=== PATIENT | female | born 1935 | race Caucasian/White ===

== ENCOUNTER 2016-08-09 05:48 | Observation (INO) | payer MEDICARE, OTHER ==
[2016-08-09] MEDS ORDERED: PANTOPRAZOLE 40 MG/10 ML VIAL IVP STA (06:07)
[2016-08-09] MEDS ORDERED: SODIUM CHLORIDE 0.9% 1,000 ML IV STA (06:07)
--- NOTE | 2016-08-09 06:10 | ED ---
General Adult HPI - General Chief complaint: GI Bleed Stated complaint: vomiting Time Seen by Provider: 08/09/16 06:03 Source: patient, family, EMS, RN notes reviewed Mode of arrival: EMS Limitations: altered mental status - History of Present Illness Initial comments: Patient is a pleasant 80-year-old female presenting to the emergency department with an episode of coffee-ground emesis. Episode occurred just prior to arrival. Patient reportedly also had a couple loose stools. Patient did have similar symptoms previously and was found to have hiatal hernia with scope. Patient denies abdominal pain. No nausea at this time. No weakness or fatigue. No dyspnea. - Related Data Home Medications Medication Instructions Recorded Confirmed Acetaminophen [Tylenol] 650 mg PO Q4H PRN 08/09/16 08/09/16 Bisacodyl [Dulcolax] 10 mg RECTAL DAILY PRN 08/09/16 08/09/16 Hydrochlorothiazide 25 mg PO DAILY 08/09/16 08/09/16 [Hydrochlorothiazide] Insulin Aspart [NovoLOG] 2 units SQ TID-W/MEALS 08/09/16 08/09/16 Insulin Glargine [Lantus] 6 units SQ HS 08/09/16 08/09/16 Ipratropium-Albuterol Nebulize 3 ml INHALATION Q6HR PRN 08/09/16 08/09/16 [Duoneb 0.5 mg-3 mg/3 ml Soln] Lansoprazole [Prevacid] 30 mg PO DIRECTED 08/09/16 08/09/16 Magnesium Hydroxide [Milk of 400 mg PO DAILY PRN 08/09/16 08/09/16 Magnesia] Multivitamins, Thera [Multivitamin] 1 tab PO HS 08/09/16 08/09/16 Potassium Chloride ER [K-Dur 10] 10 meq PO DAILY 08/09/16 08/09/16 Sertraline HCl [Sertraline HCl] 25 mg PO DAILY 08/09/16 08/09/16 Simvastatin [Simvastatin] 20 mg PO HS 08/09/16 08/09/16 Allergies Allergy/AdvReac Type Severity Reaction Status Date / Time Sulfa (Sulfonamide Allergy Rash/Hives Verified 08/09/16 05:57 Antibiotics) sulfamethoxazole Allergy Rash/Hives Verified 08/09/16 05:57 [From Bactrim] trimethoprim [From Bactrim] Allergy Rash/Hives Verified 08/09/16 05:57 Review of Systems ROS Statement: Those systems with pertinent positive or pertinent negative responses have been documented in the HPI. ROS Other: All systems not noted in ROS Statement are negative. Constitutional: Denies: fever Eyes: Denies: eye pain ENT: Denies: ear pain Respiratory: Denies: cough, dyspnea Cardiovascular: Denies: chest pain Endocrine: Denies: fatigue Gastrointestinal: Reports: other (One episode of coffee-ground emesis). Denies : abdominal pain Genitourinary: Denies: dysuria Musculoskeletal: Denies: back pain Skin: Denies: rash Neurological: Denies: weakness General Exam Limitations: altered mental status General appearance: alert, in no apparent distress Head exam: Present: atraumatic Eye exam: Present: normal appearance, PERRL ENT exam: Present: normal oropharynx Neck exam: Present: normal inspection Respiratory exam: Present: normal lung sounds bilaterally Cardiovascular Exam: Present: regular rate, normal rhythm GI/Abdominal exam: Present: soft. Absent: distended, tenderness, guarding, rebound, rigid Extremities exam: Present: normal inspection. Absent: pedal edema, calf tenderness Neurological exam: Present: alert Psychiatric exam: Present: normal affect, normal mood Skin exam: Absent: rash Course Vital Signs 08/09/16 05:49 Temperature 98.0 F Pulse Rate 87 Respiratory 18 Rate Blood Pressure 157/67 O2 Sat by Pulse 96 Oximetry EKG Findings - EKG Comments: EKG Findings:: Normal sinus rhythm at 86. SC 170. QRS 72. QT 386. QTc 461. Left axis. Normal QRS. Normal ST-T. Medical Decision Making - Medical Decision Making Patient reexamined. Patient and family updated. Case discussed with Dr. Jane , who will admit for Dr. Yen. - Lab Data Result diagrams: 08/09/16 06:05 08/09/16 06:05 Lab Results 08/09/16 08/09/16 08/09/16 Range/Units 06:05 06:05 06:05 WBC 9.7 (3.8-10.6) k/uL RBC 5.07 (3.80-5.40) m/uL Hgb 14.2 (11.4-16.0) gm/dL Hct 45.2 (34.0-46.0) % MCV 89.2 (80.0-100.0) fL MCH 28.1 (25.0-35.0) pg MCHC 31.5 (31.0-37.0) g/dL RDW 14.1 (11.5-15.5) % Plt Count 286 (150-450) k/uL Neutrophils % 67 % Lymphocytes % 25 % Monocytes % 5 % Eosinophils % 1 % Basophils % 0 % Neutrophils # 6.5 (1.3-7.7) k/uL Lymphocytes # 2.4 (1.0-4.8) k/uL Monocytes # 0.5 (0-1.0) k/uL Eosinophils # 0.1 (0-0.7) k/uL Basophils # 0.0 (0-0.2) k/uL PT 10.7 (9.0-12.0) sec INR 1.1 (<1.1) APTT 28.2 (22.0-30.0) sec Sodium 144 (137-145) mmol/L Potassium 3.7 (3.5-5.1) mmol/L Chloride 104 (98-107) mmol/L Carbon Dioxide 30 (22-30) mmol/L Anion Gap 10 mmol/L BUN 14 (7-17) mg/dL Creatinine 0.50 L (0.52-1.04) mg/dL Est GFR (MDRD) Af Amer >60 (>60 ml/min/1.73 sqM) Est GFR (MDRD) Non-Af >60 (>60 ml/min/1.73 sqM) Glucose 147 H (74-99) mg/dL Calcium 9.5 (8.4-10.2) mg/dL Total Bilirubin 0.5 (0.2-1.3) mg/dL AST 21 (14-36) U/L ALT 31 (9-52) U/L Alkaline Phosphatase 109 (38-126) U/L Total Protein 7.0 (6.3-8.2) g/dL Albumin 3.9 (3.5-5.0) g/dL Disposition Clinical Impression: Upper GI hemorrhage Disposition: ADMITTED IP TO THIS HOSP
[2016-08-09 06:18] LABS: Basophils % (A) 0 %; CH 28.5; CHCM 32.1; Eosinophils # (A) 0.1 k/uL (0-0.7); Eosinophils % (A) 1 %; HCT 45.2 % (34.0-46.0); HDW 2.47; HGB 14.2 gm/dL (11.4-16.0); Luc # (Auto) 0.18; Luc % (Auto) 2; Lymphocytes # (A) 2.4 k/uL (1.0-4.8); Lymphocytes % (A) 25 %; MCH 28.1 pg (25.0-35.0); MCHC 31.5 g/dL (31.0-37.0); MCV 89.2 fL (80.0-100.0); Mean Platelet Volume 7.2; Monocytes # (A) 0.5 k/uL (0-1.0); Monocytes % (A) 5 %; Neutrophils # (A) 6.5 k/uL (1.3-7.7); Neutrophils % (A) 67 %; RBC 5.07 m/uL (3.80-5.40); RDW 14.1 % (11.5-15.5); WBC 9.7 k/uL (3.8-10.6); WBC (Perox) 10.03
[2016-08-09 06:30] LABS: ALT 31 U/L (9-52); AST 21 U/L (14-36); Alkaline Phosphatase 109 U/L (38-126); Anion Gap 10 mmol/L; Blood Urea Nitrogen 14 mg/dL (7-17); Calcium 9.5 mg/dL (8.4-10.2); Carbon Dioxide 30 mmol/L (22-30); Chloride 104 mmol/L (98-107); Glucose 147 mg/dL (74-99); INR 1.1 (<1.1); Non-African American GFR(MDRD) >60 (>60 ml/min/1.73 sqM); Partial Thromboplastin Time 28.2 sec (22.0-30.0); Potassium 3.7 mmol/L (3.5-5.1); Prothrombin Time 10.7 sec (9.0-12.0); Sodium 144 mmol/L (137-145); Total Bilirubin 0.5 mg/dL (0.2-1.3)
[2016-08-09 06:46] LABS: Creatine Kinase 37 U/L (30-135)
[2016-08-09 06:58] LABS: Creatine Kinase MB 0.4 ng/mL (0.0-2.4); Troponin I <0.012 ng/mL (0.000-0.034)
[2016-08-09] MEDS ORDERED: NALOXONE 0.4 MG/ML 1 ML VIAL IV PRN (06:59)
[2016-08-09] MEDS: PANTOPRAZOLE 40 MG/10 ML VIAL IV SCH (08:17)
[2016-08-09] MEDS: SODIUM CHLORIDE 0.9% 1,000 ML IV SCH ×2 (08:18→15:59)
[2016-08-09] MEDS ORDERED: ACETAMINOPHEN TAB 325 MG TAB PO PRN (09:27)
[2016-08-09] MEDS ORDERED: MAGNESIUM HYDROXIDE 2,400 MG/10 ML CUP PO PRN (09:27)
[2016-08-09] MEDS ORDERED: BISACODYL 10 MG SUPP RECTAL PRN (09:27)
[2016-08-09] MEDS ORDERED: IPRATROPIUM-ALBUTEROL 3 ML NEB INHALATION PRN (09:27)
--- NOTE | 2016-08-09 09:27 | P.HPIM ---
History of Present Illness H&P Date: 08/09/16 Chief Complaint: Coffee-ground emesis A 80-year-old female was transferred from [facility] per the EMS system after care providers activated the system when patient had developed an onset of coffee-ground emesis prior to arrival patient stated that she had been coughing frequently prior to the incident. Additionally patient reports having several loose stools patient is a poor past medical record administrator.. Patient son is at the bedside health history has been obtained from interviewing the son and the patient and the nursing staff. Patient is a resident at the [facility] facility is wheelchair bedbound. According to the son at the bedside the patient had a upper scope done several years ago for similar symptoms and at that time the scope found a hiatal hernia. According to the son the patient does have a frequent nonproductive cough which is chronic the patient is denying any abdominal pain. Patient is denying any painful bowel movements. No chest pain no dizziness or lightheadedness no shortness of breath. Hemoglobin on arrival was 14.2. Temp 98. Since admission there is been no further episodes. Did note the patient this morning is incontinent of urine and stool small amount brownish in color. Patient reports no nausea sensation there is been no further emesis Review of Systems Essentially unremarkable except as mentioned in the present illness Past Medical History Past Medical History: Diabetes Mellitus, GI Bleed, Hyperlipidemia, Hypertension , Osteoarthritis (OA), Vascular Disorder Additional Past Medical History / Comment(s): pemphigoid History of Any Multi-Drug Resistant Organisms: None Reported Past Surgical History: Tonsillectomy Additional Past Surgical History / Comment(s): EGD, colonoscopy Past Psychological History: Depression Smoking Status: Former smoker Past Alcohol Use History: None Reported Past Drug Use History: None Reported Medications and Allergies Home Medications Medication Instructions Recorded Confirmed Type Acetaminophen [Tylenol] 650 mg PO Q4H PRN 08/09/16 08/09/16 History Bisacodyl [Dulcolax] 10 mg RECTAL DAILY PRN 08/09/16 08/09/16 History Hydrochlorothiazide 25 mg PO DAILY 08/09/16 08/09/16 History [Hydrochlorothiazide] Insulin Aspart [NovoLOG] 2 units SQ TID-W/MEALS 08/09/16 08/09/16 History Insulin Glargine [Lantus] 6 units SQ HS 08/09/16 08/09/16 History Ipratropium-Albuterol Nebulize 3 ml INHALATION Q6HR PRN 08/09/16 08/09/16 History [Duoneb 0.5 mg-3 mg/3 ml Soln] Lansoprazole [Prevacid] 30 mg PO DIRECTED 08/09/16 08/09/16 History Magnesium Hydroxide [Milk of 400 mg PO DAILY PRN 08/09/16 08/09/16 History Magnesia] Multivitamins, Thera [Multivitamin] 1 tab PO HS 08/09/16 08/09/16 History Potassium Chloride ER [K-Dur 10] 10 meq PO DAILY 08/09/16 08/09/16 History Sertraline HCl [Sertraline HCl] 25 mg PO DAILY 08/09/16 08/09/16 History Simvastatin [Simvastatin] 20 mg PO HS 08/09/16 08/09/16 History Allergies Allergy/AdvReac Type Severity Reaction Status Date / Time Sulfa (Sulfonamide Allergy Rash/Hives Verified 08/09/16 05:57 Antibiotics) sulfamethoxazole Allergy Rash/Hives Verified 08/09/16 05:57 [From Bactrim] trimethoprim [From Bactrim] Allergy Rash/Hives Verified 08/09/16 05:57 Physical Exam Vitals: Vital Signs Temp Pulse Resp BP Pulse Ox 08/09/16 07:30 97.4 F L 83 16 128/66 99 08/09/16 07:06 97.8 F 83 18 124/58 97 GENERAL APPEARANCE: 80-year-old female patient is alert, oriented to person place event pleasant cooperative, in no acute distress. VITAL SIGNS: Reviewed HEENT: Head is normocephalic and atraumatic. Pupils are equal and reactive. The nares are patent. Oropharynx is clear without lesions. NECK: Supple without lymphadenopathy. Traches midline. HEART: S1, S2. Regular rate and rhythm. Able to appreciate a murmur denying chest pain LUNGS: No crackles or wheezes are heard. Posterior diminished at the bases otherwise adequate air movement no wheezing noted ABDOMEN: Soft, nontender, nondistended with good bowel sounds. No peritoneal signs. No palpable organomegaly or masses. Incontinent a urine with a a small amount as brownish stool EXTREMITIES: Normal skin color and turgor. No cyanosis, rash, ulceration, clubbing or edema. Radial pedal pulses are 2/4 bilaterally. NEUROLOGICAL: No focal deficits. Strength and sensation are grossly intact. 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 [facility] GI service start patient on a clear liquid diet today and advance as tolerated monitor hemoglobin if there are no further episodes patient may be transferred back to the ECF facility within 24- 48 hrs Monitor blood sugars while NPO address as indicated Resume home meds as appropriate We'll continue to monitor further recommendations pending Son at bedside updated on plan of care DVT and GI prophylaxis We'll repeat labs in the morning and monitor response The above dictated assessment and findings were discussed with dr dolly Lopez and the plan of care have been dictated as directed. Katlin Sinha nurse practitioner acting as a scribe for dr alberto
[2016-08-09] MEDS ORDERED: ONDANSETRON 4 MG/2 ML VIAL IVP PRN (09:29)
--- NOTE | 2016-08-09 10:42 | CONS ---
DATE OF CONSULTATION: 08/09/2016 REASON FOR CONSULTATION: Acute upper GI bleed. HISTORY OF PRESENT ILLNESS: The patient is a 80-year-old pleasant lady who is a resident of [facility] was brought to the emergency room at 3:00 in the morning when she had one episode of coffee-ground emesis. The patient says that she was coughing through the night several times and around 3:00 she felt nauseated and she had a coughing spell and around that time she had small amount of coffee-ground emesis. The nursing staff at [facility] became concerned and she sent her to the emergency room and subsequently admitted to the hospital. Since being here, she did not have any further episodes of GI bleed. In fact, the patient has long-standing history of gastroesophageal reflux symptoms and has been on Prevacid 30 mg daily on an outpatient basis and doing well. In fact, her last upper endoscopy was about 4 years ago and according to the family, it was performed by me which revealed a hiatal hernia and esophagitis. The patient denies any abdominal pain. Reports no rectal bleeding or melena. She had no fever, chills, night sweats. Past medical history is significant for hypertension, hypercholesterolemia, gastroesophageal reflux disease, diabetes mellitus, coronary artery disease. Medications at home include simvastatin, sertraline, multivitamin, magnesium oxide, Prevacid, DuoNeb, Lantus, NovoLog, hydrochlorothiazide, Dulcolax and Tylenol. ALLERGIES: SULFA. SOCIAL HISTORY: History of no smoking, no alcohol use. FAMILY HISTORY: Father of coronary artery disease. REVIEW OF SYSTEMS: CARDIOPULMONARY: No chest pain or shortness of breath. GENITOURINARY: No dysuria or hematuria. MUSCULOSKELETAL: Unremarkable. SKIN: Unremarkable. ENDOCRINE: Unremarkable. PSYCHIATRIC: Unremarkable. NEUROLOGY: Unremarkable. ENT/VISION: Unremarkable. MUSCULOSKELETAL: Unremarkable. CONSTITUTIONAL: No recent weight loss. No fever, chills, night sweats. ENDOCRINOLOGY: Unremarkable. HEMATOLOGY: Unremarkable. On physical examination, she appears comfortable in no apparent distress. Vitals signs are stable. Blood pressure is 157/67, pulse rate 87, temperature 98. HEENT: Unremarkable. Conjunctivae pink. Sclerae anicteric. Oral cavity, no lesions. NECK: No JVD or lymph node enlargement. CHEST: Clear to auscultation. HEART: Regular rate and rhythm. ABDOMEN: Soft. Bowel sounds are positive. No organomegaly. EXTREMITIES: No pedal edema. SKIN: No rashes. NEURO: Alert and oriented x3. No focal deficits. Labs done at the time of admission to the hospital include hemoglobin 14.2, WBC 9.7, platelets are normal. Basic metabolic panel is normal. BUN 14, creatinine 0.5. IMPRESSION: Acute upper gastrointestinal bleed with one episode of coffee-ground emesis at 3:00 this morning. The patient has long-standing history of gastroesophageal reflux symptoms and has been on Prevacid 30 mg daily at the longterm and was doing well. Probably she had an episode of severe cough resulting in some nausea, vomiting and coffee-ground emesis, but patient is hemodynamically stable and did not have any evidence of active bleeding since being in the hospital. She is presently asymptomatic. RECOMMENDATIONS: 1. Start her on clear liquid diet. 2. Continue Protonix 40 mg q.12 hours. 3. Repeat CBC in the morning. 4. If she does not have any further episodes of bleeding, she can be discharged home tomorrow. 5. No indication for any endoscopic intervention at the present time. The plan was discussed with the patient as well as her family who is at the bedside. Thank you for this consultation.
[2016-08-09 11:49] LABS: Glucose,Whole Blood 153 mg/dL (75-99)
[2016-08-09] MEDS: INSULIN LISPRO (humaLOG) 300 UNIT/3 ML VIAL SQ SCH ×2 (12:46→18:21)
--- NOTE | 2016-08-09 13:04 | P.PN ---
Progress Note - Text Patient seen and examined by me H&P dictated by Katlin MONTIEL nurse practionner working with me today.
[2016-08-09 14:27] LABS: Basophils % (A) 0 %; CH 28.4; CHCM 31.6; Eosinophils # (A) 0.2 k/uL (0-0.7); Eosinophils % (A) 2 %; HCT 40.1 % (34.0-46.0); HGB 12.7 gm/dL (11.4-16.0); Luc # (Auto) 0.17; Luc % (Auto) 2; Lymphocytes # (A) 2.4 k/uL (1.0-4.8); Lymphocytes % (A) 30 %; MCH 28.6 pg (25.0-35.0); MCHC 31.7 g/dL (31.0-37.0); MCV 90.2 fL (80.0-100.0); Mean Platelet Volume 7.1; Monocytes # (A) 0.4 k/uL (0-1.0); Monocytes % (A) 5 %; Neutrophils # (A) 4.9 k/uL (1.3-7.7); Neutrophils % (A) 60 %; RBC 4.45 m/uL (3.80-5.40); RDW 14.1 % (11.5-15.5); WBC 8.1 k/uL (3.8-10.6); WBC (Perox) 8.51
[2016-08-09 14:36] VITALS: BMI 26.5
[2016-08-09 17:12] LABS: Glucose,Whole Blood 102 mg/dL (75-99)
[2016-08-09 21:13] LABS: Glucose,Whole Blood 133 mg/dL (75-99)
[2016-08-09] MEDS: ATORVASTATIN 10 MG TAB PO SCH (21:53)
[2016-08-09] MEDS: INSULIN GLARGINE 100 UNIT/ML 10 ML VIAL SQ SCH (21:53)
[2016-08-09] MEDS: MULTIVITAMINS, THERA 1 EACH TAB PO SCH (21:53)
[2016-08-10] MEDS: SODIUM CHLORIDE 0.9% 1,000 ML IV SCH (02:00)
[2016-08-10 07:35] LABS: Glucose,Whole Blood 101 mg/dL (75-99)
[2016-08-10] MEDS: INSULIN LISPRO (humaLOG) 300 UNIT/3 ML VIAL SQ SCH ×3 (07:57→17:21)
[2016-08-10 08:00] LABS: Basophils % (A) 1 %; CH 28.6; CHCM 31.7; Eosinophils # (A) 0.2 k/uL (0-0.7); Eosinophils % (A) 3 %; HDW 2.48; HGB 12.4 gm/dL (11.4-16.0); Luc # (Auto) 0.06; Luc % (Auto) 1; Lymphocytes # (A) 1.8 k/uL (1.0-4.8); Lymphocytes % (A) 30 %; MCHC 30.9 g/dL (31.0-37.0); MCV 90.6 fL (80.0-100.0); Mean Platelet Volume 8.3; Monocytes # (A) 0.4 k/uL (0-1.0); Monocytes % (A) 6 %; Neutrophils # (A) 3.5 k/uL (1.3-7.7); Neutrophils % (A) 60 %; RBC 4.42 m/uL (3.80-5.40); RDW 14.3 % (11.5-15.5)
[2016-08-10 08:24] LABS: ALT 31 U/L (9-52); AST 17 U/L (14-36); Alkaline Phosphatase 85 U/L (38-126); Anion Gap 8 mmol/L; Blood Urea Nitrogen 8 mg/dL (7-17); Calcium 8.5 mg/dL (8.4-10.2); Carbon Dioxide 29 mmol/L (22-30); Chloride 108 mmol/L (98-107); Glucose 117 mg/dL (74-99); Non-African American GFR(MDRD) >60 (>60 ml/min/1.73 sqM); Potassium 3.8 mmol/L (3.5-5.1); Sodium 145 mmol/L (137-145); Total Bilirubin 0.5 mg/dL (0.2-1.3); Total Protein 6.2 g/dL (6.3-8.2)
[2016-08-10] MEDS: HYDROCHLOROTHIAZIDE 25 MG TAB PO SCH (08:40)
[2016-08-10] MEDS: SERTRALINE 25 MG TAB PO SCH (08:40)
[2016-08-10] MEDS: POTASSIUM CHLORIDE ER 10 MEQ TAB.ER.PRT PO SCH (08:40)
[2016-08-10] MEDS: PANTOPRAZOLE 40 MG/10 ML VIAL IV SCH (08:41)
--- NOTE | 2016-08-10 10:52 | P.PN ---
Subjective 80-year-old female sitting up in bed pleasant cooperative oriented 3 daughter at bedside updated on the plan of care currently tolerating diet. This been no further episodes of hematemesis. The discharge plan is in progress if patient remains stable will be transferred back to [facility] in the morning daughter aware of the plan. Patient was seen by GI services recommendations reviewed noted and appreciated. Patient does have a long-standing history of gastroesophageal reflux symptoms. Has been maintained on Prevacid 30 mg daily. Patient's last endoscopic was approximate 4 years ago. Patient's family stated that it did show a hiatal hernia esophagitis. This been no abdominal pain. Objective - Vital Signs Vital signs: Vital Signs Temp 96.2 F L 08/10/16 07:00 Pulse 73 08/10/16 07:00 Resp 16 08/10/16 07:00 BP 106/70 08/10/16 07:00 Pulse Ox 96 08/10/16 07:00 Intake & Output 08/09/16 08/10/16 08/10/16 18:59 06:59 18:59 Intake Total 450 Balance 450 Weight 68.039 kg Intake: Oral 450 Other: Voiding Method Diaper # Voids 2 1 # Bowel Movements 1 - Exam Physical exam 80-year-old female sitting up in bed does not appear in any acute distress pleasant cooperative oriented times Lungs essentially clear adequate air movement Heart S1-S2 audible and regular Abdomen soft nontender tolerating diet no reports of nausea vomiting Extremities no edema - Labs CBC & Chem 7: 08/10/16 07:48 08/10/16 07:48 Labs: Abnormal Lab Results - Last 24 Hours (Table) 08/09/16 08/09/16 08/09/16 Range/Units 11:46 16:58 21:02 MCHC (31.0-37.0) g/dL Chloride (98-107) mmol/L Glucose (74-99) mg/dL POC Glucose (mg/dL) 153 H 102 H 133 H (75-99) mg/dL Total Protein (6.3-8.2) g/dL Albumin (3.5-5.0) g/dL 08/10/16 08/10/16 08/10/16 Range/Units 07:32 07:48 07:48 MCHC 30.9 L (31.0-37.0) g/dL Chloride 108 H (98-107) mmol/L Glucose 117 H (74-99) mg/dL POC Glucose (mg/dL) 101 H (75-99) mg/dL Total Protein 6.2 L (6.3-8.2) g/dL Albumin 3.2 L (3.5-5.0) g/dL Assessment and Plan Plan: Impression Present on admission coffee-ground emesis sudden onset suspect gastritis with esophagitis Limited mobility wheelchair bedbound Type 2 diabetes insulin requiring History of a hiatal hernia Hypertension essential benign Dyslipidemia Physical debility chronic suspect due to chronic illness History of chronic esophageal reflux disease Plan patient may be [facility] tomorrow Resume home meds as appropriate We'll continue to monitor further recommendations pending DVT and GI prophylaxis The above dictated assessment and findings were discussed with dr dolly Lopez and the plan of care have been dictated as directed. Katlin Sinha nurse practitioner acting as a scribe for dr alberto
--- NOTE | 2016-08-10 12:24 | PN ---
DATE OF SERVICE: 08/10/2016 Patient is a 80-year-old pleasant lady admitted to the hospital with one episode of coffee-ground emesis and since being in the hospital, she did not have any further episodes. She denies any abdominal pain, on a regular diet, tolerating well. No new complaints. On physical examination, blood pressure 134/70, pulse is 81, temperature 97.8. HEENT: Unremarkable. Conjunctivae pink. Sclerae nonicteric. Oral cavity no lesions. NECK: No JVD or lymph node enlargement. Chest was clear to auscultation. HEART: Regular rate and rhythm. Abdomen is soft. Bowel sounds are positive. No organomegaly. EXTREMITIES: No pedal edema. SKIN: No rashes. NEURO: She is alert and oriented x3. No focal deficits. Labs from today, hemoglobin 12.4, WBC 6, platelets of 245. IMPRESSION: Acute upper gastrointestinal bleed, probably related to gastroesophageal reflux disease/hiatal hernia. She had an EGD done a year ago according to her son, which showed esophagitis. Presently on Protonix IV 40 mg q.12, doing well. No further episodes of bleeding and hemoglobin stable at 12.9. RECOMMENDATIONS: 1. Advance diet as tolerated. 2. She can be discharged home today with an outpatient followup in 2 weeks.
[2016-08-10 12:34] LABS: Glucose,Whole Blood 121 mg/dL (75-99)
[2016-08-10 17:00] LABS: Glucose,Whole Blood 115 mg/dL (75-99)
[2016-08-10] MEDS: MULTIVITAMINS, THERA 1 EACH TAB PO SCH (20:17)
[2016-08-10] MEDS: ATORVASTATIN 10 MG TAB PO SCH (20:17)
[2016-08-10 21:38] LABS: Glucose,Whole Blood 128 mg/dL (75-99)
[2016-08-10] MEDS: INSULIN GLARGINE 100 UNIT/ML 10 ML VIAL SQ SCH (21:53)
[2016-08-11 01:34] VITALS: RESP 16
[2016-08-11 07:07] LABS: Glucose,Whole Blood 131 mg/dL (75-99)
[2016-08-11] MEDS: INSULIN LISPRO (humaLOG) 300 UNIT/3 ML VIAL SQ SCH ×2 (08:14→12:59)
[2016-08-11] MEDS: SERTRALINE 25 MG TAB PO SCH (08:15)
[2016-08-11] MEDS: HYDROCHLOROTHIAZIDE 25 MG TAB PO SCH (08:15)
[2016-08-11] MEDS: POTASSIUM CHLORIDE ER 10 MEQ TAB.ER.PRT PO SCH (08:15)
[2016-08-11] MEDS: PANTOPRAZOLE 40 MG/10 ML VIAL IV SCH (08:15)
[2016-08-11 09:36] LABS: Basophils % (A) 1 %; CH 28.8; CHCM 32.1; Eosinophils # (A) 0.2 k/uL (0-0.7); Eosinophils % (A) 3 %; HCT 42.1 % (34.0-46.0); HDW 2.51; HGB 13.1 gm/dL (11.4-16.0); Luc # (Auto) 0.13; Luc % (Auto) 2; Lymphocytes % (A) 32 %; MCH 28.2 pg (25.0-35.0); MCHC 31.2 g/dL (31.0-37.0); MCV 90.4 fL (80.0-100.0); Mean Platelet Volume 8.1; Monocytes # (A) 0.4 k/uL (0-1.0); Monocytes % (A) 6 %; Neutrophils # (A) 3.5 k/uL (1.3-7.7); Neutrophils % (A) 57 %; RBC 4.66 m/uL (3.80-5.40); RDW 14.5 % (11.5-15.5); WBC 6.3 k/uL (3.8-10.6); WBC (Perox) 6.62
[2016-08-11 10:48] VITALS: BP 123/67; PULSE 69; TEMP 97
[2016-08-11 11:50] LABS: Glucose,Whole Blood 157 mg/dL (75-99)
--- NOTE | 2016-08-11 13:02 | P.DS ---
Providers Date of admission: 08/09/16 06:58 Attending physician: Nova Jane Consults: 08/09/16 06:59 Consult Physician Urgent Consulting Provider: Ann Reeves Consult Reason/Comments: upper gi hemorrhage Do you want consulting provider notified?: Yes Primary care physician: Greg Yen Hospital Course: Discharge diagnosis 1. One episode of coffee-ground emesis secondary to GERD and hiatal hernia and esophagitis. Patient seen evaluated by GI service. No need for repeat scope. Hemoglobin stable. 2. Type 2 diabetes mellitus insulin-dependent 3. History of hiatal hernia 4. Essential hypertension 5. Physical debility Hospital course This is a 80-year-old female who presented to the emergency room by EMS due to one episode of coffee-ground emesis at the [facility] facility. Patient has been coughing earlier that day and had a small amount of emesis. She has not had any further GI bleeding. She has a known history of GERD and hiatal hernia and is on Prevacid 30 mg daily as outpatient. Last endoscopy was about 4 years ago according to family and had shown a hiatal hernia and esophagitis. Patient was seen evaluated by GI service and they felt that there is no need for any further endoscopy. Patient has had no further evidence of bleeding and hemoglobin is stable. Patient is next due for discharge she'll continue on her Prevacid. Patient will be returning to [facility]. Patient Condition at Discharge: Stable Plan - Discharge Summary Discharge Medication List Acetaminophen [Tylenol] 650 mg PO Q4H PRN 08/09/16 [History] Bisacodyl [Dulcolax] 10 mg RECTAL DAILY PRN 08/09/16 [History] Hydrochlorothiazide 25 mg PO DAILY 08/09/16 [History] Insulin Aspart [NovoLOG] 2 units SQ BID@0700,1100 08/09/16 [History] Insulin Aspart [NovoLOG] 4 unit SQ DAILY@1730 08/09/16 [History] Insulin Glargine [Lantus] 6 units SQ HS 08/09/16 [History] Ipratropium-Albuterol Nebulize [Duoneb 0.5 mg-3 mg/3 ml Soln] 3 ml INHALATION RT -Q6H PRN 08/09/16 [History] Lansoprazole [Prevacid] 30 mg PO MOWEFR 08/09/16 [History] Magnesium Hydroxide [Milk of Magnesia] 2,400 mg PO DAILY PRN 08/09/16 [History] Multivitamins, Thera [Multivitamin] 1 tab PO HS 08/09/16 [History] Na Phos,M-B/Na Phos,Di-Ba [Fleet Adult] 133 ml RECTAL ONCE PRN 08/09/16 [History ] Potassium Chloride ER [K-Dur 10] 10 meq PO DAILY 08/09/16 [History] Sertraline HCl 25 mg PO DAILY 08/09/16 [History] Simvastatin 20 mg PO HS 08/09/16 [History] Follow up Appointment(s)/Referral(s): Greg Yen MD [Primary Care Provider] - 1 Week Ann Reeves MD [STAFF PHYSICIAN] - 2 Weeks Patient Instructions/Handouts: Type 2 Diabetes in Adults (DC) Activity/Diet/Wound Care/Special Instructions: Patient Discharge to [facility] Dr. Eli will follow at [facility] Diet: diabetic, cardiac Activity: as tolerated Discharge Disposition: TRANSFER TO SNF/ECF
--- NOTE | 2016-08-11 13:15 | PN ---
DATE OF SERVICE: 08/11/2016 Patient is a 80-year-old pleasant lady admitted to the hospital with acute upper GI bleed. She had one episode of coffee-ground emesis but since being in the hospital, she did not have any further episodes of bleeding. She looks good. She denies any abdominal pain. No nausea, vomiting. On a regular diet, tolerating well. On physical examination, she appears comfortable, in no apparent distress. Vitals signs are stable. Blood is 123/67, pulse rate 60, temperature 97. HEENT examination unremarkable. Conjunctivae are pink. Sclerae nonicteric. Oral cavity no lesions. NECK: No JVD or lymph node enlargement. Chest was clear to auscultation. HEART: Regular rate and rhythm. Abdomen is soft. Bowel sounds are positive. No organomegaly. EXTREMITIES: No pedal edema. SKIN: No rashes. NEURO: Alert and oriented x3. No focal deficits. Labs done today, hemoglobin is 13.1. WBC is 6.3, platelets 248. IMPRESSION: Acute upper gastrointestinal bleed resolved, probably related to reflux esophagitis and hiatal hernia. Patient hemodynamically stable. No active bleeding. RECOMMENDATIONS: 1. Continue Protonix 40 mg twice daily. 2. She can be discharged home today with an outpatient follow up in 6 weeks.
== END 2016-08-11 15:30 ==
LOC: EC 05:48 → INTOOBSV 06:58 → 4MS4W 06:58
PROVIDERS: ADMIT Internal Medicine; ATTEND Internal Medicine
DX: K21.0 Gastro-esophageal reflux disease with esophagitis (principal); K44.9 Diaphragmatic hernia without obstruction or gangrene; K92.2 Gastrointestinal hemorrhage, unspecified; E11.9 Type 2 diabetes mellitus without complications; I10 Essential (primary) hypertension; R41.82 Altered mental status, unspecified; E78.5 Hyperlipidemia, unspecified; R05 Cough; L12.9 Pemphigoid, unspecified; R32 Unspecified urinary incontinence; M19.90 Unspecified osteoarthritis, unspecified site; F32.9 Major depressive disorder, single episode, unspecified; I25.10 Atherosclerotic heart disease of native coronary artery without angina pectoris; Z87.891 Personal history of nicotine dependence; Z99.3 Dependence on wheelchair; Z79.4 Long term (current) use of insulin; Z79.899 Other long term (current) drug therapy; Z88.2 Allergy status to sulfonamides; Z88.8 Allergy status to other drugs, medicaments and biological substances; Z82.49 Family history of ischemic heart disease and other diseases of the circulatory system
CPT/HCPCS: 36415; 94760; 93005; 97161; 97166; 86900; 86901; 80053 ×2; 82550; 82553; 84484; 85025 ×3; 85610; 85730; 86850; 99285; 96374; 96361; G0378 ×3; C9113 ×3; 96376